=== PATIENT | female | born 1970 | race Hispanic/Latino ===

== ENCOUNTER 2017-05-18 12:14 | Inpatient (IN) | payer BC ==
[~2017-05-18] VITALS: Ht 160 cm; Wt 68.6 kg
[2017-05-18 13:01] LABS: BASOPHILS % (AUTO) 0.1 % (0.0-5.0); EOSINOPHILS % (AUTO) 0.2 % (0.0-8.0); HEMATOCRIT 22.3 % (36-48); LYMPHOCYTES % (AUTO) 34.7 % (21.0-51.0); MEAN CORPUSCULAR HEMOGLOBIN 31.1 pg (27.0-33.0); MEAN CORPUSCULAR HGB CONC 32.3 g/dL (32.0-36.0); MEAN CORPUSCULAR VOLUME 96.4 fL (79-99); MONOCYTES % (AUTO) 8.3 % (3.0-13.0); NEUTROPHILS % (AUTO) 56.7 % (40.0-77.0); PLATELET COUNT (AUTO) 192 K/uL (130-400); RED BLOOD CELL COUNT(AUTO) 2.31 MIL/uL (4.00-5.50); RED CELL DISTRIBUTION WIDTH 18.2 % (11.0-15.5); WHITE BLOOD COUNT (AUTO) 4.2 K/uL (4.8-10.8)
[2017-05-18 13:23] LABS: CREATININE 7.7 mg/dL (0.5-1.5)
[2017-05-18] MEDS: SODIUM CHLORIDE 0.9% 1000ML 1,000 ML IV SCH (14:13)
[2017-05-18] MEDS ORDERED: LACTULOSE 20 GM/30 ML UDCUP PO PRN (14:15)
[2017-05-18] MEDS ORDERED: ONDANSETRON HCL 4 MG/2 ML VIAL IV PRN (14:15)
[2017-05-18] MEDS ORDERED: MAG HYDROX/AL HYDROX/SIMETH ES 30 ML SUSP UDCUP PO PRN (14:15)
[2017-05-18] MEDS ORDERED: ACETAMINOPHEN 325 MG TAB PO PRN ×2 (14:15)
[2017-05-18] MEDS ORDERED: GUAIFENESIN-DM 200/20 MG 10 ML PO PRN (14:15)
[2017-05-18] MEDS ORDERED: SODIUM CHLORIDE 0.9% 1000ML 1,000 ML IV ONE (14:40)
[2017-05-18 16:54] LABS: APPEARANCE,URINE Clear (CLEAR); BILIRUBIN,URINE Negative (NEGATIVE); COLOR,URINE Yellow (YELLOW); GLUCOSE, URINE (UA) Negative (NEGATIVE); KETONES,URINE Negative (NEGATIVE); LEUKOCYTE ESTERASE ,URINE Moderate (NEGATIVE); NITRATE,URINE Negative (NEGATIVE); OCCULT BLOOD,URINE Negative (NEGATIVE); PROTEIN,URINE POS 1+ (NEGATIVE); UROBILINOGEN,URINE 0.2 mg/dL (0.2-1.0)
[2017-05-18 17:05] LABS: AMORPHOUS SEDIMENT,UR Rare /LPF (None Seen); BACTERIA,URINE Few /HPF (None Seen); RBC,URINE 0-1 /HPF (0-1); SQUAMOUS EPITHELIAL CELL,UR Few /LPF (0-2)
[2017-05-18] MEDS ORDERED: CEFTRIAXONE 1GM/D5W 50ML 50 ML IV SCH (17:30)
[2017-05-18] MEDS ORDERED: CEFTRIAXONE SODIUM 1 GM ONE (17:46)
[2017-05-18 20:00] VITALS: BP 92/56
[2017-05-18] MEDS ORDERED: HYDR200T4 PO (20:49)
[2017-05-18] MEDS ORDERED: MYCO500T5 PO (20:49)
[2017-05-18] MEDS ORDERED: SODI650T PO (20:49)
[2017-05-18] MEDS ORDERED: PRED5TAB PO (20:49)
[2017-05-18] MEDS ORDERED: ASPI-555 PO (20:49)
[2017-05-18] MEDS ORDERED: IRON18TA PO (20:49)
[2017-05-18] MEDS ORDERED: PRED10TA3 PO (20:49)
[2017-05-18] MEDS ORDERED: FOLI-44 PO (20:49)
[2017-05-18] MEDS ORDERED: LISI-613 PO (20:49)
[2017-05-18] MEDS ORDERED: MAGN250T10 PO (20:49)
[2017-05-18] MEDS ORDERED: ERGO500014 PO (20:49)
[2017-05-18] MEDS ORDERED: FOLI1TAB15 PO (20:49)
[2017-05-19 00:04] VITALS: BP 93/56
[2017-05-19] MEDS: SODIUM CHLORIDE 0.9% 1000ML 1,000 ML IV SCH ×2 (00:56→17:00)
[2017-05-19 03:00] VITALS: BP_SYST 86; BP_SYST 98; BP_DIAS 49; BP_DIAS 58
[2017-05-19 04:04] LABS: MEAN CORPUSCULAR HEMOGLOBIN 33.3 pg (27.0-33.0); MEAN CORPUSCULAR HGB CONC 34.4 g/dL (32.0-36.0); MEAN CORPUSCULAR VOLUME 96.7 fL (79-99); NUCLEATED RED BLOOD CELLS 0.1 % (0.0-0.19); PLATELET COUNT (AUTO) 154 K/uL (130-400); RED BLOOD CELL COUNT(AUTO) 1.93 MIL/uL (4.00-5.50); WHITE BLOOD COUNT (AUTO) 3.4 K/uL (4.8-10.8)
[2017-05-19 04:15] LABS: HEMATOCRIT 18.7 % (36-48)
[2017-05-19 04:21] LABS: CREATININE 5.9 mg/dL (0.5-1.5); POTASSIUM 5.2 mmol/L (3.5-5.1)
[2017-05-19 07:00] VITALS: BP 101/63
[2017-05-19 11:00] VITALS: BP 98/64
[2017-05-19] MEDS: IRON 27 MG PO SCH ×2 (11:30→16:51)
[2017-05-19 16:00] VITALS: BP_SYST 115; BP_SYST 153; BP_DIAS 76; BP_DIAS 95
[2017-05-19] MEDS ORDERED: WATER FOR INJECTION,STERILE 20 ML VIAL ONE (16:54)
[2017-05-19] MEDS: MYCOPHENOLATE MOFETIL 250 MG CAPSULE PO SCH (16:59)
[2017-05-19] MEDS: CEFTRIAXONE SODIUM 1 GM IVP SCH (16:59)
[2017-05-19 20:00] VITALS: BP 114/70
[2017-05-19 20:08] LABS: CREATININE,URINE RANDOM 53 mg/dL (30-135); SODIUM,URINE RANDOM 93 mmol/l (40-220)
[2017-05-19] MEDS: SODIUM BICARBONATE 650 MG TAB PO SCH (22:00)
[2017-05-19] MEDS: PREDNISONE 5 MG TABLET PO SCH (22:00)
[2017-05-20] VITALS (7 sets, daily range): BP systolic 114–136; BP diastolic 70–85
[2017-05-20 04:19] LABS: HEMATOCRIT 23.2 % (36-48); MEAN CORPUSCULAR HEMOGLOBIN 30.5 pg (27.0-33.0); MEAN CORPUSCULAR HGB CONC 33.1 g/dL (32.0-36.0); MEAN CORPUSCULAR VOLUME 91.9 fL (79-99); PLATELET COUNT (AUTO) 138 K/uL (130-400); RED BLOOD CELL COUNT(AUTO) 2.52 MIL/uL (4.00-5.50); RED CELL DISTRIBUTION WIDTH 18.2 % (11.0-15.5); WHITE BLOOD COUNT (AUTO) 3.5 K/uL (4.8-10.8)
[2017-05-20 04:31] LABS: CREATININE 3.7 mg/dL (0.5-1.5); POTASSIUM 5.2 mmol/L (3.5-5.1)
[2017-05-20] MEDS: SODIUM CHLORIDE 0.9% 1000ML 1,000 ML IV SCH ×3 (05:26→17:05)
[2017-05-20] MEDS: IRON 27 MG PO SCH ×3 (05:33→17:00)
[2017-05-20] MEDS: PREDNISONE 10 MG TABLET PO SCH (12:53)
[2017-05-20] MEDS: MAGNESIUM OXIDE 400 MG TABLET PO SCH (12:53)
[2017-05-20] MEDS: SODIUM BICARBONATE 650 MG TAB PO SCH ×2 (12:53→21:05)
[2017-05-20] MEDS: HYDROXYCHLOROQUINE SULFATE 200 MG TAB PO SCH (12:53)
[2017-05-20] MEDS: MULTIVITAMIN WITH MINERALS TABLET PO SCH (12:53)
[2017-05-20] MEDS: FOLIC ACID 1 MG TABLET PO SCH (12:53)
[2017-05-20] MEDS: MYCOPHENOLATE MOFETIL 250 MG CAPSULE PO SCH ×2 (12:54→17:05)
[2017-05-20] MEDS: CEFTRIAXONE SODIUM 1 GM IVP SCH (17:05)
[2017-05-20] MEDS: PREDNISONE 5 MG TABLET PO SCH (21:05)
[2017-05-21] MEDS: SODIUM CHLORIDE 0.9% 1000ML 1,000 ML IV SCH (02:24)
[2017-05-21 03:00] VITALS: BP 130/79
[2017-05-21 03:58] LABS: HEMATOCRIT 23.6 % (36-48)
[2017-05-21 04:08] LABS: CREATININE 2.9 mg/dL (0.5-1.5); POTASSIUM 5.1 mmol/L (3.5-5.1)
[2017-05-21] MEDS: IRON 27 MG PO SCH (07:30)
[2017-05-21 08:00] VITALS: BP 151/92
[2017-05-21] MEDS: PREDNISONE 10 MG TABLET PO SCH (09:00)
[2017-05-21] MEDS ORDERED: ASPIRIN 81 MG EC TAB PO SCH (09:00)
[2017-05-21] MEDS ORDERED: AMLO5TAB2 PO (10:33)
[2017-05-21] MEDS: MYCOPHENOLATE MOFETIL 250 MG CAPSULE PO SCH (11:02)
[2017-05-21] MEDS: MULTIVITAMIN WITH MINERALS TABLET PO SCH (11:03)
[2017-05-21] MEDS: SODIUM BICARBONATE 650 MG TAB PO SCH (11:03)
[2017-05-21] MEDS: MAGNESIUM OXIDE 400 MG TABLET PO SCH (11:03)
[2017-05-21] MEDS: HYDROXYCHLOROQUINE SULFATE 200 MG TAB PO SCH (11:03)
[2017-05-21] MEDS: FOLIC ACID 1 MG TABLET PO SCH (11:07)
[2017-05-26] MEDS ORDERED: ERGOCALCIFEROL (VITAMIN D2) 50,000 UNIT CAPSULE PO SCH (09:00)
== END 2017-05-21 11:20 | disposition home or self-care (01) | DRG 684 ==
LOC: EDH 12:14 → OBSVTOIN 14:13 → EDHIP 14:13 → 3BH 20:05
PROVIDERS: ADMIT Family Medicine; ATTEND Family Medicine
PROC: 30233N1 Transfusion of Nonautologous Red Blood Cells into Peripheral Vein, Percutaneous Approach (ICD-10-PCS; principal; 2017-05-18)
DX: N17.9 Acute kidney failure, unspecified (principal); M32.14 Glomerular disease in systemic lupus erythematosus; I12.9 Hypertensive chronic kidney disease with stage 1 through stage 4 chronic kidney disease, or unspecified chronic kidney disease; D64.9 Anemia, unspecified; N18.4 Chronic kidney disease, stage 4 (severe); E86.0 Dehydration; D72.819 Decreased white blood cell count, unspecified
CPT/HCPCS: 36415; 36430; 71046; 76770; 80048; 81001; 82570; 84300; 84484; 84540; 85025; 85027; 86850; 86900; 86901; 86922; 93005; A4218; J0696; J7030; J7512; J7517; P9016

== ENCOUNTER 2018-07-29 06:04 | Emergency (ER) | payer BC ==
[~2018-07-29 06:04] MED LIST: AMLO5TAB9 PO; ASPI-555 PO; CENTRUM CHEWAB1 EACH PO; ERGO500014 PO; FOLI1TAB15 PO; HYDR200T4 PO; IRON18TA PO; MAGN250T10 PO; MYCO500T5 PO; PRED10TA3 PO; PRED5TAB PO; SODI650T PO
[2018-07-29 08:19] LABS: BASOPHILS % (AUTO) 0.2 % (0.0-5.0); EOSINOPHILS % (AUTO) 0.3 % (0.0-8.0); LYMPHOCYTES % (AUTO) 25.7 % (21.0-51.0); MEAN CORPUSCULAR HEMOGLOBIN 30.8 pg (27.0-33.0); MEAN CORPUSCULAR VOLUME 96.1 fL (79-99); MONOCYTES % (AUTO) 7.8 % (3.0-13.0); NUCLEATED RED BLOOD CELLS 0.3 % (0.0-0.19); PLATELET COUNT (AUTO) 180 K/uL (130-400); RED BLOOD CELL COUNT(AUTO) 3.33 MIL/uL (4.00-5.50); RED CELL DISTRIBUTION WIDTH 15.7 % (11.0-15.5); WHITE BLOOD COUNT (AUTO) 3.7 K/uL (4.8-10.8)
[2018-07-29 08:23] LABS: CREATININE 2.9 mg/dL (0.5-1.5); POTASSIUM 4.2 mmol/L (3.5-5.1)
[2018-07-29] MEDS ORDERED: IBUPROFEN 400 MG TABLET ONE (08:25)
[2018-07-29 08:29] LABS: ALBUMIN 3.3 g/dL (3.5-5.0); BILIRUBIN,TOTAL 0.5 mg/dL (0.2-1.0); TOTAL PROTEIN, SERUM 6.5 g/dL (6.0-8.3)
[2018-07-29 08:30] LABS: APPEARANCE,URINE Clear (CLEAR); BILIRUBIN,URINE Negative (NEGATIVE); COLOR,URINE Yellow (YELLOW); GLUCOSE, URINE (UA) Negative (NEGATIVE); KETONES,URINE Negative (NEGATIVE); LEUKOCYTE ESTERASE ,URINE Negative (NEGATIVE); NITRATE,URINE Negative (NEGATIVE); OCCULT BLOOD,URINE Small (NEGATIVE); PROTEIN,URINE 300 mg/dL (NEGATIVE); UROBILINOGEN,URINE 0.2 mg/dL (0.2-1.0)
[2018-07-29 08:56] LABS: INR 0.95 (0.85-1.15)
[2018-07-29 08:57] LABS: BACTERIA,URINE None Seen /HPF (None Seen); RBC,URINE None Seen /HPF (0-1); SQUAMOUS EPITHELIAL CELL,UR Few /HPF (0-2); WBC,URINE 0-1 /HPF (0-1)
== END 2018-07-29 10:37 | disposition home or self-care (01) ==
LOC: EDH 06:04
DX: K85.90 Acute pancreatitis without necrosis or infection, unspecified (principal); R53.1 Weakness; M32.9 Systemic lupus erythematosus, unspecified; N18.4 Chronic kidney disease, stage 4 (severe)
CPT/HCPCS: 36415; 80053; 81001; 82550; 83690; 84484; 85025; 85610; 85730; 93005

== ENCOUNTER → 2019-03-24 | Outpatient (CLI) | payer BC | END | disposition home or self-care (01) | LOC: SHCH 11:16 | PROVIDERS: ATTEND Internal Medicine Cardiovascular Disease | DX: Z01.810 Encounter for preprocedural cardiovascular examination (principal); I12.9 Hypertensive chronic kidney disease with stage 1 through stage 4 chronic kidney disease, or unspecified chronic kidney disease; N18.4 Chronic kidney disease, stage 4 (severe) | CPT/HCPCS: 93306 ==

== ENCOUNTER → 2019-04-26 | Outpatient (CLI) | payer BC ==
--- NOTE | 2019-04-19 12:37 | NUR ---
PT WAS A NO SHOW FOR THIS DATE OF SERVICE
[~2019-04-26] VITALS: Ht 160 cm; Wt 70.8 kg
[~2019-04-26] MED LIST changes: +REGADENOSON 0.4 MG/5 ML PF SYG IVP SCH
== END | disposition home or self-care (01) ==
LOC: SHCH 08:55
PROVIDERS: ATTEND Internal Medicine Cardiovascular Disease
DX: Z01.810 Encounter for preprocedural cardiovascular examination (principal); I12.9 Hypertensive chronic kidney disease with stage 1 through stage 4 chronic kidney disease, or unspecified chronic kidney disease; N18.4 Chronic kidney disease, stage 4 (severe)
CPT/HCPCS: 78452; 93017; 96374; A9500 ×2; J2785

== ENCOUNTER → 2019-12-25 | Outpatient (CLI) | payer BC ==
[~2019-12-25] MED LIST changes: -ASPI-555 PO; +ASPI-556 PO; -REGADENOSON 0.4 MG/5 ML PF SYG IVP SCH
== END | disposition home or self-care (01) ==
LOC: SHCH 16:20
PROVIDERS: ATTEND Internal Medicine Cardiovascular Disease
DX: R06.00 Dyspnea, unspecified (principal)
CPT/HCPCS: 93306; 93356

== ENCOUNTER → 2020-07-15 | Outpatient (CLI) | payer BC ==
[~2020-07-15] MED LIST changes: +AMLO-257 PO; -AMLO5TAB9 PO
== END | disposition home or self-care (01) ==
LOC: OIH 09:34
PROVIDERS: ATTEND Internal Medicine
DX: M85.842 Other specified disorders of bone density and structure, left hand (principal); M85.841 Other specified disorders of bone density and structure, right hand; M19.91 Primary osteoarthritis, unspecified site; M21.932 Unspecified acquired deformity of left forearm

== ENCOUNTER 2020-08-25 08:51 | Inpatient (IN) | payer BC ==
[~2020-08-25] VITALS: Ht 160 cm; Wt 63.0 kg
[2020-08-25 09:31] LABS: APPEARANCE,URINE Turbid (CLEAR); BILIRUBIN,URINE Small (NEGATIVE); COLOR,URINE Dark Yellow (YELLOW); GLUCOSE, URINE (UA) Negative (NEGATIVE); KETONES,URINE Trace mg/dL (NEGATIVE); LEUKOCYTE ESTERASE ,URINE Trace (NEGATIVE); NITRATE,URINE Negative (NEGATIVE); OCCULT BLOOD,URINE Negative (NEGATIVE); PROTEIN,URINE POS 2+ mg/dL (NEGATIVE)
[2020-08-25 09:33] LABS: BACTERIA,URINE Few /HPF (None Seen); RBC,URINE 0-1 /HPF (0-1); SQUAMOUS EPITHELIAL CELL,UR Rare /HPF (0-2); WBC,URINE 0-1 /HPF (0-1)
[2020-08-25] MEDS ORDERED: CEFTRIAXONE 2GM VIAL ONE (09:39)
[2020-08-25 09:41] LABS: BASOPHILS % (AUTO) 0.5 % (0.0-5.0); HEMATOCRIT 33.4 % (36-48); LYMPHOCYTES % (AUTO) 12.4 % (21.0-51.0); MEAN CORPUSCULAR HEMOGLOBIN 27.8 pg (27.0-33.0); MEAN CORPUSCULAR HGB CONC 32.6 g/dL (32.0-36.0); MEAN CORPUSCULAR VOLUME 85.2 fL (79-99); MONOCYTES % (AUTO) 6.7 % (3.0-13.0); NEUTROPHILS % (AUTO) 79.4 % (40.0-77.0); PLATELET COUNT (AUTO) 82 K/uL (130-400); RED BLOOD CELL COUNT(AUTO) 3.92 MIL/uL (4.00-5.50); RED CELL DISTRIBUTION WIDTH 12.6 % (11.0-15.5); WHITE BLOOD COUNT (AUTO) 2.1 K/uL (4.8-10.8)
[2020-08-25] MEDS ORDERED: 0.9%NACL 50ML 50 ML IV ONE (09:47)
[2020-08-25 09:50] LABS: CREATININE 1.6 mg/dL (0.5-1.5); POTASSIUM 3.4 mmol/L (3.5-5.1)
[2020-08-25 09:55] LABS: ALBUMIN 3.2 g/dL (3.5-5.0); BILIRUBIN,TOTAL 0.7 mg/dL (0.2-1.0); TOTAL PROTEIN, SERUM 7.2 g/dL (6.0-8.3)
[2020-08-25 10:18] LABS: INR 1.11 (0.85-1.15)
[2020-08-25] MEDS ORDERED: ACETAMINOPHEN 500 MG TABLET ONE (11:01)
[2020-08-25 12:10] LABS: BAND NEUTROPHILS % (MANUAL) 13 % (0-2); LYMPHOCYTES % (MANUAL) 9 % (22-44); MONOCYTES % (MANUAL) 8 % (2-9); SEGMENTED NEUTROPHILS % 70 % (40-70)
[2020-08-25 12:11] LABS: MAN.DIFF COMMENT-IMPRESSION MANUAL DIFFERENTIAL; PLATELET MORPHOLOGY COMMENT DECREASED
[2020-08-25] MEDS ORDERED: ACETAMINOPHEN 325 MG TAB ONE (17:25)
[2020-08-25 17:52] LABS: CREATININE 1.6 mg/dL (0.5-1.5)
[2020-08-25] MEDS ORDERED: VANCOMYCIN PROTOCOL PER PHARMACY IV SCH (18:45)
[2020-08-25] MEDS ORDERED: LACTATED RINGERS 1000ML 1,000 ML IV ONE (18:45)
[2020-08-25] MEDS ORDERED: VANCOMYCIN 1G/250ML KIT 250 ML IV SCH (20:00)
[2020-08-25] MEDS ORDERED: CEFEPIME HCL 2 GM VIAL ONE (21:04)
[2020-08-26 04:21] LABS: AMPHET/METH SCREEN,URINE NEGATIVE (NEGATIVE); BARBITURATE SCREEN, URINE NEGATIVE (NEGATIVE); BENZODIAZEPINES SCREEN,URINE NEGATIVE (NEGATIVE); CANNABINOID SCREEN,URINE NEGATIVE (NEGATIVE); COCAINE SCREEN,URINE NEGATIVE (NEGATIVE); OPIATE SCREEN,URINE NEGATIVE (NEGATIVE); PHENCYCLIDINE SCREEN,URINE NEGATIVE (NEGATIVE)
[2020-08-26] MEDS ORDERED: ACETAMINOPHEN 325 MG TAB ONE ×3 (04:49→19:44)
[2020-08-26 05:15] LABS: HEMATOCRIT 29.3 % (36-48); LYMPHOCYTES % (AUTO) 18.6 % (21.0-51.0); MEAN CORPUSCULAR HEMOGLOBIN 27.8 pg (27.0-33.0); MEAN CORPUSCULAR HGB CONC 32.4 g/dL (32.0-36.0); MEAN CORPUSCULAR VOLUME 85.7 fL (79-99); MONOCYTES % (AUTO) 7.2 % (3.0-13.0); NEUTROPHILS % (AUTO) 73.7 % (40.0-77.0); PLATELET COUNT (AUTO) 75 K/uL (130-400); RED BLOOD CELL COUNT(AUTO) 3.42 MIL/uL (4.00-5.50); RED CELL DISTRIBUTION WIDTH 12.7 % (11.0-15.5); WHITE BLOOD COUNT (AUTO) 1.9 K/uL (4.8-10.8)
[2020-08-26 05:21] LABS: ALBUMIN 2.6 g/dL (3.5-5.0); BILIRUBIN,TOTAL 0.5 mg/dL (0.2-1.0); CREATININE 1.3 mg/dL (0.5-1.5); TOTAL PROTEIN, SERUM 6.2 g/dL (6.0-8.3)
[2020-08-26] MEDS: CEFEPIME HCL 2 GM VIAL IVP SCH ×3 (06:45→18:45)
[2020-08-26] MEDS ORDERED: CEFEPIME HCL 2 GM VIAL ONE (10:22)
[2020-08-26] MEDS ORDERED: 0.9%NACL 50ML 50 ML IV ONE (10:22)
[2020-08-26] MEDS ORDERED: VANCOMYCIN 750MG + NS 250 ML IV SCH ×2 (10:45)
[2020-08-26] MEDS ORDERED: COMPOUND IV REFRIGERATED 1 EACH IVSOLN MISC PRN (10:45)
[2020-08-26] MEDS ORDERED: TBO-FILGRASTIM 300 MCG/0.5 ML ML SQ SCH ×2 (13:45→16:15)
[2020-08-26 14:00] VITALS: BP 106/66
[2020-08-26 16:30] VITALS: BP 165/90
[2020-08-26] MEDS: TACROLIMUS 1 MG CAPSULE PO SCH ×2 (17:23→21:00)
[2020-08-26] MEDS: MYCOPHENOLATE MOFETIL 250 MG CAPSULE PO SCH ×2 (17:25→21:00)
[2020-08-26] MEDS ORDERED: CHOL100040 PO (17:56)
[2020-08-26] MEDS ORDERED: TACR1CAP10 PO (17:56)
[2020-08-26] MEDS ORDERED: METO50TA18 PO (17:56)
[2020-08-26] MEDS ORDERED: BUDE10.2 IH (17:56)
[2020-08-26] MEDS ORDERED: IRON18TA PO (17:56)
[2020-08-26] MEDS ORDERED: CYAN250010 PO (17:56)
[2020-08-26] MEDS ORDERED: LACTATED RINGERS 1000ML 1,000 ML IV ONE (19:06)
[2020-08-26 19:41] VITALS: BP 129/81
[2020-08-26] MEDS ORDERED: ACETAMINOPHEN 325 MG TAB PO PRN ×2 (19:45)
[2020-08-27] VITALS (7 sets, daily range): BP systolic 96–146; BP diastolic 66–86
[2020-08-27] MEDS: CEFEPIME HCL 2 GM VIAL IVP SCH ×2 (05:20→18:55)
[2020-08-27 05:50] LABS: BASOPHILS % (AUTO) 0.2 % (0.0-5.0); HEMATOCRIT 29.4 % (36-48); LYMPHOCYTES % (AUTO) 10.3 % (21.0-51.0); MEAN CORPUSCULAR HEMOGLOBIN 27.2 pg (27.0-33.0); MEAN CORPUSCULAR VOLUME 85.2 fL (79-99); MONOCYTES % (AUTO) 5.1 % (3.0-13.0); NEUTROPHILS % (AUTO) 81.3 % (40.0-77.0); PLATELET COUNT (AUTO) 52 K/uL (130-400); RED BLOOD CELL COUNT(AUTO) 3.45 MIL/uL (4.00-5.50); RED CELL DISTRIBUTION WIDTH 12.6 % (11.0-15.5); WHITE BLOOD COUNT (AUTO) 5.5 K/uL (4.8-10.8)
[2020-08-27 06:00] LABS: CREATININE 1.3 mg/dL (0.5-1.5); POTASSIUM 3.4 mmol/L (3.5-5.1)
[2020-08-27] MEDS: TACROLIMUS 1 MG CAPSULE PO SCH ×2 (08:45→21:13)
[2020-08-27] MEDS: MYCOPHENOLATE MOFETIL 250 MG CAPSULE PO SCH ×2 (08:46→21:13)
[2020-08-27] MEDS ORDERED: LACTATED RINGERS 1000ML 1,000 ML IV SCH (10:30)
[2020-08-27] MEDS ORDERED: ACETAMINOPHEN WITH CODEINE 1 TAB TAB PO PRN (12:45)
[2020-08-27] MEDS: ACETAMINOPHEN WITH CODEINE 1 TAB TAB PO PRN (12:52)
[2020-08-27] MEDS ORDERED: HYDROXYCHLOROQUINE SULFATE 200 MG TAB ONE (13:59)
[2020-08-27] MEDS: BUDESONIDE 0.5 MG/2 ML INH IH SCH (18:30)
[2020-08-27] MEDS: ALBUTEROL 0.083% 2.5 MG/3 ML INH IH SCH (18:30)
[2020-08-27] MEDS ORDERED: ONDANSETRON 4MG INJ ONE (19:07)
[2020-08-27] MEDS: ONDANSETRON 4MG INJ IVP PRN (19:09)
[2020-08-27] MEDS: HYDROXYCHLOROQUINE SULFATE 200 MG TAB PO SCH (21:13)
[2020-08-28] MEDS: ALBUTEROL 0.083% 2.5 MG/3 ML INH IH SCH ×5 (00:30→23:50)
[2020-08-28 03:03] VITALS: BP 119/75
[2020-08-28] MEDS: CEFEPIME HCL 2 GM VIAL IVP SCH (05:53)
[2020-08-28 06:14] LABS: BASOPHILS % (AUTO) 0.2 % (0.0-5.0); HEMATOCRIT 28.4 % (36-48); LYMPHOCYTES % (AUTO) 13.2 % (21.0-51.0); MEAN CORPUSCULAR HEMOGLOBIN 27.2 pg (27.0-33.0); MONOCYTES % (AUTO) 3.7 % (3.0-13.0); NEUTROPHILS % (AUTO) 82.7 % (40.0-77.0); PLATELET COUNT (AUTO) 58 K/uL (130-400); RED BLOOD CELL COUNT(AUTO) 3.34 MIL/uL (4.00-5.50); RED CELL DISTRIBUTION WIDTH 12.8 % (11.0-15.5); WHITE BLOOD COUNT (AUTO) 4.3 K/uL (4.8-10.8)
[2020-08-28 06:22] LABS: CREATININE 1.4 mg/dL (0.5-1.5); POTASSIUM 3.5 mmol/L (3.5-5.1)
[2020-08-28] MEDS: BUDESONIDE 0.5 MG/2 ML INH IH SCH ×2 (06:46→18:22)
[2020-08-28 07:30] VITALS: BP 123/72
[2020-08-28] MEDS: 0.9%NACL 1000ML 1,000 ML IV SCH ×2 (07:50→20:50)
[2020-08-28] MEDS: TACROLIMUS 1 MG CAPSULE PO SCH ×2 (08:26→21:27)
[2020-08-28] MEDS: MYCOPHENOLATE MOFETIL 250 MG CAPSULE PO SCH ×2 (08:26→21:26)
[2020-08-28] MEDS: METOPROLOL TARTRATE 25 MG TAB PO SCH (08:27)
[2020-08-28] MEDS: HYDROXYCHLOROQUINE SULFATE 200 MG TAB PO SCH ×2 (08:27→21:26)
[2020-08-28] MEDS ORDERED: MAGNESIUM 2GM PREMIX 50ML 50 ML IV PRN ×2 (11:15→11:45)
[2020-08-28 11:27] VITALS: BP 94/56
[2020-08-28] MEDS: LEVOFLOXACIN 750 MG/D5W 150 ML 150 ML IV SCH (13:16)
[2020-08-28] MEDS: LINEZOLID 600 MG/ISO-OSM 300 ML IV SCH (14:30)
[2020-08-28] MEDS: ONDANSETRON 4MG INJ IVP PRN ×2 (14:43→21:26)
[2020-08-28 16:33] VITALS: BP 122/66
[2020-08-28 19:58] VITALS: BP 111/64
[2020-08-28 23:18] VITALS: BP 112/64
[2020-08-29] MEDS: LINEZOLID 600 MG/ISO-OSM 300 ML IV SCH ×2 (02:22→14:51)
[2020-08-29] MEDS: ONDANSETRON 4MG INJ IVP PRN ×3 (03:33→20:33)
[2020-08-29 03:49] VITALS: BP 92/58
[2020-08-29 06:10] LABS: BASOPHILS % (AUTO) 0.2 % (0.0-5.0); HEMATOCRIT 25.2 % (36-48); LYMPHOCYTES % (AUTO) 12.5 % (21.0-51.0); MEAN CORPUSCULAR HEMOGLOBIN 28.7 pg (27.0-33.0); MEAN CORPUSCULAR HGB CONC 33.3 g/dL (32.0-36.0); MONOCYTES % (AUTO) 5.7 % (3.0-13.0); NEUTROPHILS % (AUTO) 80.7 % (40.0-77.0); PLATELET COUNT (AUTO) 51 K/uL (130-400); RED BLOOD CELL COUNT(AUTO) 2.93 MIL/uL (4.00-5.50); RED CELL DISTRIBUTION WIDTH 13.1 % (11.0-15.5); WHITE BLOOD COUNT (AUTO) 4.4 K/uL (4.8-10.8)
[2020-08-29 06:14] LABS: CREATININE 2.1 mg/dL (0.5-1.5); POTASSIUM 3.4 mmol/L (3.5-5.1)
[2020-08-29] MEDS: BUDESONIDE 0.5 MG/2 ML INH IH SCH ×2 (06:48→18:39)
[2020-08-29] MEDS: ALBUTEROL 0.083% 2.5 MG/3 ML INH IH SCH ×3 (06:48→18:39)
[2020-08-29 08:36] VITALS: BP 127/71
[2020-08-29] MEDS: METOPROLOL TARTRATE 25 MG TAB PO SCH (08:59)
[2020-08-29] MEDS: MYCOPHENOLATE MOFETIL 250 MG CAPSULE PO SCH ×2 (08:59→20:34)
[2020-08-29] MEDS: TACROLIMUS 1 MG CAPSULE PO SCH ×2 (08:59→20:34)
[2020-08-29] MEDS: HYDROXYCHLOROQUINE SULFATE 200 MG TAB PO SCH ×2 (08:59→20:33)
[2020-08-29] MEDS: MAGNESIUM OXIDE 250 MG PO SCH (09:00)
[2020-08-29] MEDS ORDERED: MAG/ALUM/SIMETH 30 ML UDCUP PO SCH (10:30)
[2020-08-29 12:09] VITALS: BP 96/64
[2020-08-29] MEDS: LEVOFLOXACIN 750 MG/D5W 150 ML 150 ML IV SCH (14:51)
[2020-08-29 17:20] VITALS: BP 111/65
[2020-08-29] MEDS: 0.9%NACL 1000ML 1,000 ML IV SCH ×2 (19:22→21:16)
[2020-08-29 20:00] VITALS: BP 118/67
[2020-08-30] VITALS: BP 120/73
[2020-08-30] MEDS: ALBUTEROL 0.083% 2.5 MG/3 ML INH IH SCH ×3 (00:08→11:25)
[2020-08-30] MEDS: ACETAMINOPHEN WITH CODEINE 1 TAB TAB PO PRN (01:13)
[2020-08-30] MEDS: LINEZOLID 600 MG/ISO-OSM 300 ML IV SCH (01:20)
[2020-08-30 04:00] VITALS: BP 119/74
[2020-08-30 06:13] LABS: BASOPHILS % (AUTO) 0.2 % (0.0-5.0); EOSINOPHILS % (AUTO) 0.2 % (0.0-8.0); HEMATOCRIT 27.4 % (36-48); LYMPHOCYTES % (AUTO) 13.5 % (21.0-51.0); MEAN CORPUSCULAR HEMOGLOBIN 27.5 pg (27.0-33.0); MEAN CORPUSCULAR HGB CONC 32.5 g/dL (32.0-36.0); MEAN CORPUSCULAR VOLUME 84.6 fL (79-99); MONOCYTES % (AUTO) 4.6 % (3.0-13.0); NEUTROPHILS % (AUTO) 80.9 % (40.0-77.0); PLATELET COUNT (AUTO) 62 K/uL (130-400); RED BLOOD CELL COUNT(AUTO) 3.24 MIL/uL (4.00-5.50); WHITE BLOOD COUNT (AUTO) 5.3 K/uL (4.8-10.8)
[2020-08-30 06:31] LABS: POTASSIUM 3.8 mmol/L (3.5-5.1)
[2020-08-30] MEDS: BUDESONIDE 0.5 MG/2 ML INH IH SCH (06:32)
[2020-08-30] MEDS: MAGNESIUM OXIDE 250 MG PO SCH (09:00)
[2020-08-30 09:14] VITALS: BP 117/69
[2020-08-30] MEDS: MYCOPHENOLATE MOFETIL 250 MG CAPSULE PO SCH (09:17)
[2020-08-30] MEDS: TACROLIMUS 1 MG CAPSULE PO SCH (09:17)
[2020-08-30] MEDS: HYDROXYCHLOROQUINE SULFATE 200 MG TAB PO SCH (09:17)
[2020-08-30] MEDS: ONDANSETRON 4MG INJ IVP PRN (09:17)
[2020-08-30 11:47] VITALS: BP 90/49
[2020-08-30] MEDS: LEVOFLOXACIN 750 MG/D5W 150 ML 150 ML IV SCH (13:21)
[2020-08-30] MEDS: 0.9%NACL 1000ML 1,000 ML IV SCH (13:21)
[2020-08-30] MEDS ORDERED: PROMETHAZINE HCL 25 MG/ML 1ML AMPULE IM SCH (16:15)
[2020-10-06] MEDS ORDERED: HYDR200T4 PO (12:36)
[2020-10-06] MEDS ORDERED: TACR1CAP10 PO (12:36)
[2020-10-06] MEDS ORDERED: FOLI1 PO (12:36)
[2020-10-06] MEDS ORDERED: MYCO250C36 PO (12:36)
[2020-10-06] MEDS ORDERED: APIX5TAB PO (12:36)
[2020-10-06] MEDS ORDERED: METO25TA6 PO (12:36)
[2020-10-12] MEDS ORDERED: CEFU500T67 PO (13:15)
== END 2020-08-30 17:15 | disposition short-term general hospital (02) | DRG 698 ==
LOC: EDH 08:51 → EDHIP 18:34 → 3CH 08-26 14:15
PROVIDERS: ADMIT Internal Medicine; ATTEND Internal Medicine
DX: T86.13 Kidney transplant infection (principal); A41.81 Sepsis due to Enterococcus; N18.6 End stage renal disease; J18.9 Pneumonia, unspecified organism; N39.0 Urinary tract infection, site not specified; D61.818 Other pancytopenia; E87.1 Hypo-osmolality and hyponatremia; D84.9 Immunodeficiency, unspecified; I12.0 Hypertensive chronic kidney disease with stage 5 chronic kidney disease or end stage renal disease; N17.9 Acute kidney failure, unspecified; N25.81 Secondary hyperparathyroidism of renal origin; Z16.21 Resistance to vancomycin; Z94.0 Kidney transplant status; E83.42 Hypomagnesemia; E87.6 Hypokalemia; Z79.899 Other long term (current) drug therapy; R53.81 Other malaise; E11.22 Type 2 diabetes mellitus with diabetic chronic kidney disease; M32.9 Systemic lupus erythematosus, unspecified; Z74.01 Bed confinement status; Z82.0 Family history of epilepsy and other diseases of the nervous system; Z82.49 Family history of ischemic heart disease and other diseases of the circulatory system; Z83.3 Family history of diabetes mellitus; Y83.8 Other surgical procedures as the cause of abnormal reaction of the patient, or of later complication, without mention of misadventure at the time of the procedure; Y92.89 Other specified places as the place of occurrence of the external cause; Z20.822 Contact with and (suspected) exposure to COVID-19
CPT/HCPCS: 36415; 71045; 74018; 76770; 80048; 80053; 80197; 80305; 81001; 83605; 83735; 84145; 84484; 85025; 85610; 85651; 85730; 86140; 86160; 86215; 87040; 87077; 87088; 87186; 87324; 87426; 87804; 94640; 94664; G0378; J0692; J0696; J1956; J2020; J2405; J3370; J3475; J7050; J7120; J7507; J7517; U0003

== ENCOUNTER 2022-05-20 13:00 | Emergency (ER) | payer BC ==
[~2022-05-20] VITALS: Ht 160 cm; Wt 66.2 kg
[~2022-05-20 13:00] MED LIST changes: -AMLO-257 PO; +APIX5TAB PO; -ASPI-556 PO; +CEFU500T67 PO; -CENTRUM CHEWAB1 EACH PO; -ERGO500014 PO; +FOLI1 PO; -FOLI1TAB15 PO; -IRON18TA PO; -MAGN250T10 PO; +METO25TA6 PO; +MYCO250C36 PO; -MYCO500T5 PO; -PRED10TA3 PO; -PRED5TAB PO; -SODI650T PO; +TACR1CAP10 PO
[2022-05-20 14:30] LABS: BASOPHILS % (AUTO) 0.4 % (0.0-5.0); EOSINOPHILS % (AUTO) 0.9 % (0.0-8.0); HEMATOCRIT 34.8 % (36-48); LYMPHOCYTES % (AUTO) 17.7 % (21.0-51.0); MEAN CORPUSCULAR HEMOGLOBIN 28.5 pg (27.0-33.0); MEAN CORPUSCULAR HGB CONC 32.2 g/dL (32.0-36.0); MEAN CORPUSCULAR VOLUME 88.5 fL (79-99); MONOCYTES % (AUTO) 8.1 % (3.0-13.0); NEUTROPHILS % (AUTO) 72.5 % (40.0-77.0); PLATELET COUNT (AUTO) 187 K/uL (130-400); RED BLOOD CELL COUNT(AUTO) 3.93 MIL/uL (4.00-5.50); RED CELL DISTRIBUTION WIDTH 13.1 % (11.0-15.5); WHITE BLOOD COUNT (AUTO) 5.6 K/uL (4.8-10.8)
[2022-05-20 14:40] LABS: CREATININE 1.3 mg/dL (0.5-1.5); POTASSIUM 4.4 mmol/L (3.5-5.1)
[2022-05-20 14:44] LABS: ALBUMIN 3.3 g/dL (3.5-5.0); TOTAL PROTEIN, SERUM 7.2 g/dL (6.0-8.3)
[2022-05-20 15:26] VITALS: BP 134/70
== END 2022-05-20 15:28 | disposition home or self-care (01) ==
LOC: EDH 13:00
DX: N93.9 Abnormal uterine and vaginal bleeding, unspecified (principal); Z98.890 Other specified postprocedural states; Z79.899 Other long term (current) drug therapy
CPT/HCPCS: 36415; 80053; 85025

== ENCOUNTER 2022-06-08 07:00 | Emergency (ER) | payer BC ==
[~2022-06-08] VITALS: Ht 160 cm; Wt 64.0 kg
[2022-06-08 07:58] LABS: BASOPHILS % (AUTO) 0.2 % (0.0-5.0); HEMATOCRIT 33.5 % (36-48); LYMPHOCYTES % (AUTO) 6.5 % (21.0-51.0); MEAN CORPUSCULAR HEMOGLOBIN 28.2 pg (27.0-33.0); MEAN CORPUSCULAR HGB CONC 31.6 g/dL (32.0-36.0); MEAN CORPUSCULAR VOLUME 89.1 fL (79-99); NEUTROPHILS % (AUTO) 86.4 % (40.0-77.0); PLATELET COUNT (AUTO) 194 K/uL (130-400); RED BLOOD CELL COUNT(AUTO) 3.76 MIL/uL (4.00-5.50); RED CELL DISTRIBUTION WIDTH 12.5 % (11.0-15.5); WHITE BLOOD COUNT (AUTO) 8.8 K/uL (4.8-10.8)
[2022-06-08] MEDS ORDERED: 0.9%NACL 1000ML 1,000 ML IV ONE ×2 (08:00→08:30)
[2022-06-08 08:11] LABS: INR 1.06 (0.85-1.15); PROTHROMBIN TIME 11.5 SEC (9.6-11.6)
[2022-06-08 08:12] LABS: PARTIAL THROMBOPLASTIN TIME 32.3 SEC (26.3-35.5)
[2022-06-08 08:54] LABS: ALBUMIN 3.1 g/dL (3.5-5.0); CREATININE 1.5 mg/dL (0.5-1.5); POTASSIUM 4.4 mmol/L (3.5-5.1); TOTAL PROTEIN, SERUM 7.5 g/dL (6.0-8.3)
[2022-06-08 09:28] LABS: APPEARANCE,URINE CLOUDY (CLEAR); BILIRUBIN,URINE SMALL mg/dL (NEGATIVE); COLOR,URINE YELLOW (YELLOW); GLUCOSE, URINE (UA) NEGATIVE (NEGATIVE); KETONES,URINE NEGATIVE (NEGATIVE); LEUKOCYTE ESTERASE ,URINE MODERATE Leu/uL (NEGATIVE); NITRATE,URINE POSITIVE (NEGATIVE); OCCULT BLOOD,URINE LARGE (NEGATIVE); PH,URINE 5.5 (5.0-8.0); PROTEIN,URINE 100 mg/dL (NEGATIVE); UROBILINOGEN,URINE 0.2 mg/dL (0.2-1.0)
[2022-06-08 09:36] VITALS: BP 99/57
[2022-06-08] MEDS ORDERED: CEPH500B PO (09:46)
[2022-06-08 09:48] LABS: BACTERIA,URINE Many /HPF (None Seen); WBC,URINE >100 /HPF (0-1)
[2022-06-21] MEDS ORDERED: MYCO500T PO (06:53)
[2022-06-21] MEDS ORDERED: CYAN250010 PO (11:57)
[2022-06-21] MEDS ORDERED: FOLI0.4T6 PO (11:57)
[2022-06-21] MEDS ORDERED: MULT-1296 PO (11:57)
[2022-06-21] MEDS ORDERED: TACR1CAP10 PO (14:45)
[2022-06-21] MEDS ORDERED: MAGN250C PO (14:45)
[2022-06-21] MEDS ORDERED: TACR1GRA PO (14:45)
[2022-06-21] MEDS ORDERED: CHOL200079 PO (14:45)
[2022-06-21] MEDS ORDERED: MYCO250C7 PO (14:45)
== END 2022-06-08 10:15 | disposition home or self-care (01) ==
LOC: EDH 07:00
DX: N39.0 Urinary tract infection, site not specified (principal); Z79.01 Long term (current) use of anticoagulants; Z79.899 Other long term (current) drug therapy; Z20.822 Contact with and (suspected) exposure to COVID-19
CPT/HCPCS: 99284; 96360; 71045; 87635; 96361; 82550; 84484; 80053; 85025; 85610; 85730; 87040 ×2; 87077 ×2; 87088; 87186 ×2; 87804 ×2; 83605; 81001; 36415; 93005; C9803; J7030